=== PATIENT | female | born 1965 | race Caucasian/White ===

== ENCOUNTER 2021-07-13 17:26 | Emergency (ER) | payer BC ==
[~2021-07-13] VITALS: Ht 157.5 cm; Wt 60.0 kg
[2021-07-13 17:33] VITALS: BP 149/93
== END 2021-07-13 18:14 | disposition home or self-care (01) ==
LOC: ER 17:28
DX: F41.9 Anxiety disorder, unspecified (principal); R11.0 Nausea; F32.A Depression, unspecified
CPT/HCPCS: 99281

== ENCOUNTER 2022-04-03 08:45 | Day surgery (SDC) | payer BC ==
[2022-03-27 10:32] LABS: BASOPHILS # (AUTO) 0.1 X10'3 (0-0.2); BASOPHILS % (AUTO) 1.2 % (0-1); EOSINOPHILS # (AUTO) 0.3 X10'3 (0-0.9); EOSINOPHILS % (AUTO) 3.9 % (0-6); LYMPHOCYTES # (AUTO) 2.3 X10'3 (1.1-4.8); LYMPHOCYTES % (AUTO) 27.3 % (21-51); MEAN CORPUSCULAR HEMOGLOBIN 31.7 PG (27.0-31.0); MEAN CORPUSCULAR HGB CONC 33.8 g/dL (33.0-36.5); MEAN CORPUSCULAR VOLUME 93.7 FL (78-98); MEAN PLATELET VOLUME 6.9 FL (7.4-10.4); MONOCYTES # (AUTO) 0.7 X10'3 (0-0.9); MONOCYTES % (AUTO) 7.9 % (2-12); NEUTROPHILS % (AUTO) 59.7 % (42-75); PRE OP HEMATOCRIT 38.3 % (35.0-45.0); PRE OP HEMOGLOBIN 12.9 g/dL (12.0-16.0); PRE OP PLATELET COUNT 368 X10'3 (140-440); RED BLOOD COUNT 4.09 X10'6 (4.20-5.60); RED CELL DISTRIBUTION WIDTH 12.7 % (11.5-14.5)
[2022-03-27 10:54] LABS: ALBUMIN 3.8 G/DL (3.4-5.0); ALKALINE PHOSPHATASE 64 IU/L (46-116); BLOOD UREA NITROGEN 9 MG/DL (7-18); CALCIUM 9.4 MG/DL (8.5-10.1); CHLORIDE 104 MMOL/L (99-107); CREATININE 0.75 MG/DL (0.40-0.90); PRE OP ALT 33 U/L (30-65); PRE OP ANION GAP 7 (8-16); PRE OP AST 30 U/L (10-37); PRE OP BILIRUB, TOTAL 0.4 MG/DL (0.0-1.0); PRE OP GLUCOSE 92 MG/DL (70-104); PRE OP POTASSIUM 3.8 MMOL/L (3.4-5.1); PRE OP SODIUM 140 MMOL/L (135-145); TOTAL CARBON DIOXIDE 29.5 MMOL/L (24-32); TOTAL PROTEIN 7.7 G/DL (6.4-8.2); eGFR 80 ML/MIN
[2022-04-03] VITALS (33 sets, daily range): BP systolic 80–129; BP diastolic 50–69
[~2022-04-03] VITALS: Ht 157.5 cm; Wt 55.4 kg
[~2022-04-03 08:45] MED LIST: ALPR0.5T9 PO; BUSP15TA7 PO; CA C1TAB93 PO; FLUO-167 PO; GABA-534 PO; HYDROcodone/acetaminophen 10/325mg tab PO PRN; HYDROmorphone 1 mg/ml syringe IV PRN; HYDROmorphone inj. 0.5 MG/0.5 ML DISP.SYRIN IV PRN; LAMO25TA72 PO; acetaminophen 325mg tablet PO ONE; acetaminophen 325mg tablet PO PRN; bisacodyl 10mg suppository rectal RC PRN; ceFAZolin inj. 2,000 MG in dextrose 5%-water 100 ML IV ONE; celeCOXIB 100mg capsule PO ONE; diphenhydrAMINE 25mg capsule PO PRN; famotidine 20mg tablet PO ONE; gabapentin 300mg capsule PO ONE; magnesium hydroxide 30ml (MOM) UD suspension PO PRN; metoclopramide 5 mg/ml inj IV ONE; naloxone 0.4 mg/ml inj IV PRN; ondansetron/PF 4mg/2ml inj IV PRN; oxyCODONE SR 10mg (sust. release) tab -2 tabs (20mg) PO ONE; ringers solution, lacted 1,000 ML IV SCH; tranexamic acid inj. 1,000 MG in normal saline IV soln 100ML IV ONE; vancomycin/NS 1 GM in NS 250 ML IV ONE
--- NOTE | 2022-04-03 11:00 | NUR ---
CMS NOTE: PT STATED SHE DID NOT WATCH THE VIDEO NOR READ THE BOOKLET PROVIDED. PT WAS EDUCATED ON TE USE OF IS AND RETURN DEMONSTRATION PERFORMED. PT HAS PALPABLE BILAT DORSALIS PEDIS AND POST TIBIAL PULSES PRESENT.
[2022-04-03] MEDS ORDERED: cloNIDine hcl/PF 100mcg/ml inj ONE (12:24)
[2022-04-03] MEDS ORDERED: ROPIVAcaine 0.5% (5mg/ml) 30ml vial ONE ×2 (12:24→13:33)
[2022-04-03] MEDS ORDERED: epiNEPHrine 1 mg/ml inj ONE (12:24)
[2022-04-03] MEDS ORDERED: vancomycin 1,000mg inj ONE (12:24)
[2022-04-03] MEDS ORDERED: ketorolac trometh. 30mg/ml inj. ONE (12:24)
[2022-04-03] MEDS ORDERED: MIDAZolam 1 MG/ML 5ML VIAL ONE (12:28)
[2022-04-03] MEDS ORDERED: fentaNYL/PF 50MCG/1 ML 2ML syringe ONE (12:28)
[2022-04-03] MEDS ORDERED: LAMO25TA5 PO (12:44)
[2022-04-03] MEDS ORDERED: proCHLORperazine 10 MG/2 ml inj IV PRN (13:25)
[2022-04-03] MEDS ORDERED: ROPIVAcaine 0.2% (10 MG/5 ML) BOLUS INJECTION ADDCANAL PRN (13:25)
[2022-04-03] MEDS ORDERED: ringers solution, lacted 1,000 ML IV SCH (13:25)
[2022-04-03] MEDS ORDERED: meperidine/PF 25mg/ml syringe IV PRN ×3 (13:25)
[2022-04-03] MEDS ORDERED: morphine 2 MG/ML inj. syringe IV PRN (13:25)
[2022-04-03] MEDS ORDERED: ondansetron/PF 4mg/2ml inj IV PRN (13:25)
[2022-04-03] MEDS ORDERED: morphine 4 MG/ML inj SYRINge IV PRN (13:25)
[2022-04-03] MEDS ORDERED: propofol inj 20 ML IV ONE (13:33)
--- NOTE | 2022-04-03 14:26 | NUR ---
Received from OR via HOSPITAL BED, accompanied by Anesthesiologist DR NICK and report given by Anesthesiolgist. PT JAMARI WITH 18G LEFT HAND,LEFT KNEE INDY DRESSING WITH WRAP AND POWDER PACK, CDI. ON-Q READY. VSS. Addendum: 04/03/22 at 1445 by Tere Scherer RN, RN Amended: Links added.
[2022-04-03] MEDS ORDERED: ROPIVAcaine 0.2%/PF PUMP/bolus 545 ML ADDCANAL SCH (14:38)
[2022-04-03] MEDS: ceFAZolin/D5W- 1GM premix 50 ML IV SCH (16:07)
[2022-04-03] MEDS ORDERED: tranexamic acid inj. 600 MG in normal saline 100ml IV soln 94 ML IV ONE (18:00)
--- NOTE | 2022-04-03 18:06 | NUR ---
Report called to receiving nurse MARCELA FARIAS. Transferred via HOSPITAL BED TO ROOM 360B. BED IN LOW LOCKED POSITION, CALL LIGHT IN REACH, VITALS MACHINE HOOKED UP TO PT. PT BELONGINGS 1 BACK BACK, 1 PT BELONGING BAG AND CELL PHOMN, READING GLASSES TO ROOM 360B. Special Issues communicated to receiving nurse. Addendum: 04/03/22 at 1815 by Tere Scherer RN RN Amended: Links added.
--- NOTE | 2022-04-03 18:35 | NUR ---
Patient in room [facility]. I have received report from DINORA Montero and had the opportunity to ask questions and assume patient care.
--- NOTE | 2022-04-03 18:56 | NUR ---
Report to Nancy FARIAS
[2022-04-03] MEDS: potassium cl 20mEq in 1/2 NS 1,000 ML IV SCH ×2 (19:43→21:00)
[2022-04-03] MEDS: lamoTRIgine 25mg tablet PO SCH (19:55)
[2022-04-03] MEDS: gabapentin 300mg capsule PO SCH (19:55)
[2022-04-03] MEDS: ascorbic acid 500mg tablet PO SCH (19:55)
[2022-04-03] MEDS: ALPRAZolam 0.5mg tablet PO SCH (19:55)
[2022-04-03] MEDS: HYDROcodone/acetaminophen 10/325mg tab PO PRN (19:56)
[2022-04-03] MEDS ORDERED: vancomycin/NS 1 GM ADD-VANTAGE 250 ML IV SCH (20:00)
[2022-04-03] MEDS ORDERED: sennosides 8.6mg tablet PO SCH (21:00)
[2022-04-04] MEDS: ceFAZolin/D5W- 1GM premix 50 ML IV SCH (00:14)
[2022-04-04 02:00] VITALS: BP 93/56
[2022-04-04] MEDS: HYDROcodone/acetaminophen 10/325mg tab PO PRN ×2 (04:34→08:19)
[2022-04-04] MEDS: potassium cl 20mEq in 1/2 NS 1,000 ML IV SCH (05:45)
[2022-04-04 06:00] VITALS: BP 103/51
--- NOTE | 2022-04-04 06:18 | NUR ---
Patient in room [facility]. I have received report from ruiz barth and had the opportunity to ask questions and assume patient care.
--- NOTE | 2022-04-04 06:40 | NUR ---
Problems reprioritized. Patient report given, questions answered & plan of care reviewed with DINORA Quan.
[2022-04-04 07:14] LABS: BASOPHILS % (AUTO) 0.5 % (0-1); EOSINOPHILS # (AUTO) 0.3 X10'3 (0-0.9); EOSINOPHILS % (AUTO) 3.5 % (0-6); HEMATOCRIT 29.9 % (35.0-45.0); HEMOGLOBIN 9.9 g/dl (12.0-16.0); LYMPHOCYTES # (AUTO) 2.3 X10'3 (1.1-4.8); MEAN CORPUSCULAR HEMOGLOBIN 31.2 PG (27.0-31.0); MEAN CORPUSCULAR HGB CONC 33.3 g/dL (33.0-36.5); MEAN CORPUSCULAR VOLUME 93.8 FL (78-98); MEAN PLATELET VOLUME 7.5 FL (7.4-10.4); MONOCYTES # (AUTO) 0.9 X10'3 (0-0.9); MONOCYTES % (AUTO) 9.6 % (2-12); NEUTROPHILS # (AUTO) 6.3 X10'3 (1.8-7.7); NEUTROPHILS % (AUTO) 63.4 % (42-75); PLATELET COUNT 285 X10'3 (140-440); RED BLOOD COUNT 3.19 X10'6 (4.20-5.60); RED CELL DISTRIBUTION WIDTH 12.7 % (11.5-14.5); WHITE BLOOD COUNT 9.9 X10'3 (4.5-11.0)
[2022-04-04 07:47] LABS: ANION GAP 6 (8-16); CHLORIDE 107 MMOL/L (99-107); POTASSIUM 4.1 MMOL/L (3.5-5.1); SODIUM 140 MMOL/L (135-145); TOTAL CARBON DIOXIDE 27.4 MMOL/L (24-32)
[2022-04-04] MEDS ORDERED: busPIRone 15mg tablet PO SCH (08:00)
[2022-04-04] MEDS ORDERED: FLUoxetine 20mg capsule PO SCH (08:00)
[2022-04-04] MEDS ORDERED: multivitamins, therapeutics tablet PO SCH (08:00)
[2022-04-04] MEDS: ALPRAZolam 0.5mg tablet PO SCH (08:07)
[2022-04-04] MEDS: ascorbic acid 500mg tablet PO SCH (08:10)
[2022-04-04] MEDS: lamoTRIgine 25mg tablet PO SCH (08:12)
[2022-04-04] MEDS: gabapentin 300mg capsule PO SCH (08:13)
[2022-04-04] MEDS ORDERED: aspirin 325mg tablet PO SCH (08:30)
[2022-04-04 10:00] VITALS: BP 96/60
--- NOTE | 2022-04-04 11:40 | NUR ---
Joint surgery consult: Pt s/p L knee surgery this admit per EMR. Pt seen by RD for written/verbal high protein diet ed w/ RD contact information provided. Pt reports low appetite ~month [employer] though now has cook to prepare meals for her at home post-op w/ appetite improving. RD reviewed protein supplementation options to ensure needs meet if meal intake declines post-op. RD encouraged pt to contact dietitian's office if further questions/concerns. Addendum: 04/04/22 at [address] Amended: Links added.
--- NOTE | 2022-04-04 12:21 | NUR ---
pt is stable for discharge, iv cannula was intact, pt took their belongings and understood all their discharge info, pt on Q was discharged with them and explained to the pt a couple of times about the INDY. pt was wheeled down to the lobby by the student and left in a private vehicle.
[2022-04-04] MEDS ORDERED: celeCOXIB 100mg capsule PO SCH (20:00)
== END 2022-04-04 12:04 | disposition home or self-care (01) ==
LOC: PAS 08:45 → SUR 3N 12:45 → UNDOADMIN 18:22 → SUR 3N 18:22 → PAS 04-04 12:04
PROVIDERS: ATTEND Orthopaedic Surgery
DX: M17.12 Unilateral primary osteoarthritis, left knee (principal); M21.162 Varus deformity, not elsewhere classified, left knee; F41.8 Other specified anxiety disorders; D64.9 Anemia, unspecified; Z79.899 Other long term (current) drug therapy; Z90.710 Acquired absence of both cervix and uterus; Z98.890 Other specified postprocedural states; G89.18 Other acute postprocedural pain
CPT/HCPCS: 27447; 36415; 64447; 73560; 76942; 80051; 80053; 82948; 85025; 86885; 86900; 86901; 87081; 97116; 97161; 97530; C1713; C1776; J0171; J0690; J0735; J1885; J2175; J2250; J2704; J2765; J2795; J3010; J3370; J3480; J3490; J7030; J7060; J7120; Z7506; Z7508; Z7512; A4215; A6449; A7000; G0378